=== PATIENT | female | born 1960 | race Two or more races ===

== ENCOUNTER 2021-07-25 08:19 | Outpatient (CLI) | payer OTHER | END 2021-07-25 08:25 | disposition home or self-care (01) | LOC: SONOGRAMA 08:19 | DX: K76.0 Fatty (change of) liver, not elsewhere classified (principal); E80.6 Other disorders of bilirubin metabolism; N20.0 Calculus of kidney; K59.09 Other constipation ==

== ENCOUNTER 2025-05-30 16:49 | Emergency (ER) | payer OTHER ==
[~2025-05-30] VITALS: Ht 154.9 cm; Wt 76.7 kg
[2025-05-30] MEDS ORDERED: LOSARTAN POTASS25 MG PO (17:20)
[2025-05-30 17:24] VITALS: BP 103/66; O2SAT 97
[2025-05-30] MEDS ORDERED: KETOROLAC TROMETHAMINE 30 MG VIAL IM STA (17:37)
[2025-05-30] MEDS ORDERED: DEXAMETHASONE SODIUM PHOSPHATE 4 MG/ML VIAL IM STA (17:37)
[2025-05-30] MEDS ORDERED: KETOROLAC TROMETHAMINE 30 MG VIAL ONE (19:14)
[2025-05-30] MEDS ORDERED: DEXAMETHASONE SODIUM PHOSPHATE 4 MG/ML VIAL ONE (19:15)
[2025-05-30 20:07] LABS: BASO % 0.5 % (0.1-1.2); EOS # 0.12 (0.04-0.54); EOS % 1.5 % (0.7-7.0); LYMPH # 2.35 (1.18-3.74); LYMPH % 29.3 % (19.3-53.1); MEAN PLATELET VOLUME 10.70 fl (9.4-12.4); MONO # 0.59 (0.24-0.82); MONO % 7.4 % (4.7-12.5); NEUT # 4.90 (1.56-6.13); NEUT % 61.2 % (34.0-71.1); RED CELL DISTRIBUTION WIDTH 12.2 % (11.6-14.4)
[2025-05-30 20:18] LABS: URINE APPEARANCE Clear; URINE BILIRRUBIN Negative (NEGATIVE); URINE BLOOD Small; URINE COLOR Yellow; URINE GLUCOSE Negative (NEGATIVE); URINE KETONE Trace (NEGATIVE); URINE LEUKOCYTE Negative; URINE NITRATE Negative; URINE PROTEIN Negative (NEGATIVE); URINE UROBILINOGEN 0.2 E.U./dl
[2025-05-30 20:19] LABS: URINE BACTERIA 27.4 uL (0.0-1933); URINE EPITHELIAL CELLS 2.8 uL (0.0-38.8); URINE RBC 10.4 uL (0.0-20.8); URINE WBC 4.1 uL (0.0-23.2)
[2025-05-30 20:27] LABS: BUN CREA RATIO 18.0 (7.0-25.0); CREATININE SERUM 0.87 mg/dL (0.55-1.02); GFR 65.55; GLUCOSE FASTING 102.0 mg/dL (65-100); OSMOLALITY SERUM 290.0 MOSM/KG (275-295)
[2025-05-30 20:30] LABS: URINE CAST 0.28 uL (0.0-1.40)
[2025-05-30] MEDS ORDERED: MACROBID 100 M100 MG PO (21:50)
== END 2025-05-30 22:59 | disposition home or self-care (01) ==
LOC: ER 16:49
PROVIDERS: General Practice
DX: R30.0 Dysuria (principal); R51.9 Headache, unspecified; F41.8 Other specified anxiety disorders; I10 Essential (primary) hypertension; E11.9 Type 2 diabetes mellitus without complications; Z88.0 Allergy status to penicillin